=== PATIENT | male | born 1960 | race Caucasian/White ===

== ENCOUNTER 2020-06-07 10:05 | Emergency (ER) | payer OTHER, BC ==
[2020-06-07 10:15] VITALS: BP 117/85; PULSE 82; TEMP 98; BMI 32.8
[2020-06-07] MEDS ORDERED: IBUPROFEN 400 MG TABLET (FP) PO ONE (10:33)
[2020-06-07] MEDS ORDERED: IBUPROFEN 600 MG TABLET (FP) PO ONE (11:01)
== END 2020-06-07 13:10 | disposition home or self-care (01) ==
LOC: FER 10:05
DX: M79.661 Pain in right lower leg (principal)
CPT/HCPCS: 93971-TC; 99284-25

== ENCOUNTER 2023-05-12 15:24 | Emergency (ER) | payer OTHER, BC ==
[2023-05-12 15:40] VITALS: BP 118/79; PULSE 84; RESP 18; TEMP 98.9; BMI 34.2
[2023-05-12 16:34] LABS: HEMATOCRIT 48.6 % (35.4-49); HEMOGLOBIN 16.7 G/dL (11.7-16.9); MCH 30.1 pg (25.7-33.7); MCHC 34.4 g/dl (32.0-35.9); MEAN CELL VOLUME 87.8 fl (80-96); MEAN PLT VOLUME 8.6 fl (7.5-11.1); PLATELET COUNT 247.9 10^3/uL (134-434); RBC 5.54 10^6/uL (4.00-5.60); RDW 13.9 % (11.9-15.9); WHITE BLOOD COUNT 7.9 10^3/uL (4.0-10.8)
[2023-05-12] MEDS ORDERED: ACETAMINOPHEN INJECTION 100 ML IVPB ONE (16:38)
[2023-05-12] MEDS: SODIUM CHLORIDE 0.9% 1000 ML INFUS.BAG IV ONE (16:43)
[2023-05-12] MEDS: ACETAMINOPHEN 1000 MG/100 ML BAG IVPB ONE (16:44)
[2023-05-12 16:50] LABS: ALBUMIN 4.4 g/dl (3.4-5.0); BILIRUBIN,TOTAL 1.2 mg/dl (0.2-1); CALCIUM 9.7 mg/dl (8.5-10.1); CREATININE 0.8 mg/dl (0.6-1.3); POTASSIUM 3.7 mmol/L (3.5-5.1); TOT PROT 6.9 g/dl (6.4-8.2)
== END 2023-05-12 18:50 | disposition home or self-care (01) ==
LOC: FER 15:24
PROC: 3E033NZ Introduction of Analgesics, Hypnotics, Sedatives into Peripheral Vein, Percutaneous Approach (ICD-10-PCS; principal; 2023-05-12)
DX: R10.84 Generalized abdominal pain (principal); K65.9 Peritonitis, unspecified
CPT/HCPCS: 36415; 74177-TC; 80053; 81003; 85027; 87086; 96374; 99285-25; J0131; Q9967

== ENCOUNTER 2023-09-11 16:22 | Emergency (ER) | payer OTHER, BC ==
[2023-09-11 16:33] VITALS: BP 126/94; PULSE 96; RESP 18; TEMP 97.9; BMI 33.5
[2023-09-11] MEDS ORDERED: CEFPODOXIME PROXETIL 200 MG TABLET [NF] PO ONE (17:14)
== END 2023-09-11 17:26 | disposition home or self-care (01) ==
LOC: FER 16:22
DX: N30.01 Acute cystitis with hematuria (principal); R30.0 Dysuria; R39.15 Urgency of urination
CPT/HCPCS: 81003; 81015; 87086; 99283-25

== ENCOUNTER 2023-10-26 12:54 | Emergency (ER) | payer OTHER, BC ==
[2023-10-26 13:11] VITALS: BP 140/84; PULSE 84; RESP 16; TEMP 97.7; BMI 33.5
[2023-10-26 14:14] LABS: EPITHELIAL CELLS 0-5 /hpf
== END 2023-10-26 14:18 | disposition home or self-care (01) ==
LOC: FER 12:54
DX: R35.0 Frequency of micturition (principal); R30.0 Dysuria; N39.0 Urinary tract infection, site not specified
CPT/HCPCS: 81003; 81015; 99283-25